=== PATIENT | male | born 1950 | race African-American/Black ===

== ENCOUNTER 2018-10-18 12:54 | Observation (INO) ==
[2018-10-18] MEDS ORDERED: LOPRESSOR INJ 5 MG AMP IVP PRN (14:43)
[2018-10-18 15:20] VITALS: BMI 27.1
[2018-10-18 15:37] LABS: BILIRUBIN,URINE NEGATIVE (NEGATIVE); BLOOD/HEMOGLOBIN,URINE NEGATIVE (NEGATIVE); GLUCOSE, URINE NEGATIVE (NEGATIVE); KETONES,URINE NEGATIVE (NEGATIVE); LEUKOCYTE ESTERASE ,URINE NEGATIVE (NEGATIVE); NITRITES,URINE NEGATIVE (NEGATIVE); PH,URINE 6.5 (5.0 - 8.0); PROTEIN,URINE NEGATIVE (NEGATIVE); UROBILINOGEN,URINE NORMAL (NORMAL)
[2018-10-18 15:46] LABS: APPEARANCE,URINE CLEAR (CLEAR); COLOR,URINE PALE YELLOW (YELLOW)
[2018-10-18 15:48] LABS: BASOPHILS # (AUTO) 0.1 X10^3/uL (0.0-0.1); BASOPHILS % (AUTO) 0.7 % (0.2-1.0); EOSINOPHILS # (AUTO) 0.3 x10^3/uL (0.0-0.2); EOSINOPHILS % (AUTO) 3.9 % (0.9-2.9); LYMPHOCYTES # (AUTO) 1.4 X10^3/uL (1.3-2.9); LYMPHOCYTES % (AUTO) 17.9 % (21.0-51.0); MEAN CORPUSCULAR HEMOGLOBIN 27.7 pg (27.0-34.0); MEAN CORPUSCULAR HGB CONC 32.4 g/dL (33.0-35.0); MEAN CORPUSCULAR VOLUME 85.4 fL (80.0-100.0); MEAN PLATELET VOLUME 7.7 fL (7.4-11.0); MONOCYTES # (AUTO) 0.7 x10^3/uL (0.3-0.8); MONOCYTES % (AUTO) 8.7 % (0.0-13.0); NEUTROPHILS # (AUTO) 5.5 x10^3/uL (2.2-4.8); NEUTROPHILS % (AUTO) 68.8 % (42.0-75.0); PLATELET COUNT 390 X10^3/uL (150.0-450.0); RED BLOOD COUNT 5.04 X10^6/uL (4.7-6.0); RED CELL DISTRIBUTION WIDTH 14.4 % (11.6-16.5)
[2018-10-18 16:09] LABS: ALANINE AMINOTRANSFERASE 40 Units/L (12-78); ALBUMIN 3.9 g/dL (3.4-5.0); ALKALINE PHOSPHATASE 146 Units/L (46-116); ASPARTATE AMINO TRANSFERASE 20 Units/L (15-37); BLOOD UREA NITROGEN 12 mg/dL (7-18); CALCIUM 9.4 mg/dL (8.5-10.1); CARBON DIOXIDE 30.3 mmol/L (21-32); CHLORIDE 103 mmol/L (98-107); CREATININE 1.17 mg/dL (0.70-1.30); MAGNESIUM 2.2 mg/dL (1.7-2.9); SODIUM 141 mmol/L (136-145); TOTAL PROTEIN 8.7 g/dL (6.4-8.2); eGFR NON BLACK RACES > 60 (>60)
[2018-10-18 16:19] LABS: CKMB % 1.1 % (<4); CREATINE KINASE 256 Units/L (39-308); CREATINE KINASE MB 2.8 ng/mL (0-4.0); TROPONIN I < 0.02 ng/mL (0-1.5)
--- NOTE | 2018-10-18 16:43 | RAD ---
History: Chest pain Study: Portable AP chest Comparison: None Findings: The lungs are grossly clear. The heart size is normal with a tortuous descending thoracic aorta. There is no edema or effusion or atelectasis or consolidation. Impression: No evidence for acute cardiopulmonary disease Reported By:
[2018-10-18] MEDS ORDERED: ULTRAM PO PRN (18:50)
[2018-10-18 21:41] LABS: CKMB % 1.1 % (<4); CREATINE KINASE 210 Units/L (39-308); CREATINE KINASE MB 2.3 ng/mL (0-4.0); TROPONIN I < 0.02 ng/mL (0-1.5)
[2018-10-18] MEDS: ZOFRAN INJ 4 MG VIAL IVP PRN (23:29)
[2018-10-19 03:15] LABS: BASOPHILS # (AUTO) 0.1 X10^3/uL (0.0-0.1); BASOPHILS % (AUTO) 1.4 % (0.2-1.0); EOSINOPHILS # (AUTO) 0.3 x10^3/uL (0.0-0.2); EOSINOPHILS % (AUTO) 3.9 % (0.9-2.9); HEMATOCRIT 41.6 % (42.0-54.0); HEMOGLOBIN 13.4 g/dL (13.5-18.0); LYMPHOCYTES # (AUTO) 1.2 X10^3/uL (1.3-2.9); LYMPHOCYTES % (AUTO) 17.8 % (21.0-51.0); MEAN CORPUSCULAR HEMOGLOBIN 27.6 pg (27.0-34.0); MEAN CORPUSCULAR HGB CONC 32.3 g/dL (33.0-35.0); MEAN CORPUSCULAR VOLUME 85.4 fL (80.0-100.0); MEAN PLATELET VOLUME 7.6 fL (7.4-11.0); MONOCYTES # (AUTO) 0.6 x10^3/uL (0.3-0.8); NEUTROPHILS # (AUTO) 4.6 x10^3/uL (2.2-4.8); NEUTROPHILS % (AUTO) 67.9 % (42.0-75.0); PLATELET COUNT 340 X10^3/uL (150.0-450.0); RED BLOOD COUNT 4.87 X10^6/uL (4.7-6.0); RED CELL DISTRIBUTION WIDTH 13.9 % (11.6-16.5); WHITE BLOOD COUNT 6.7 X10^3/uL (3.6-10.0)
[2018-10-19 03:24] LABS: ALANINE AMINOTRANSFERASE 36 Units/L (12-78); ALBUMIN 3.4 g/dL (3.4-5.0); ALKALINE PHOSPHATASE 131 Units/L (46-116); ASPARTATE AMINO TRANSFERASE 18 Units/L (15-37); BLOOD UREA NITROGEN 12 mg/dL (7-18); CALCIUM 8.6 mg/dL (8.5-10.1); CARBON DIOXIDE 28.2 mmol/L (21-32); CHLORIDE 105 mmol/L (98-107); CHOL/HDL RATIO 2.5 (0.0-5.0); CHOLESTEROL 81 mg/dL (0-200); COR NA(FOR HYPERGLY) 142 mmol/L (136-145); CREATININE 1.19 mg/dL (0.70-1.30); HDL CHOLESTEROL 32 mg/dL (40-60); SODIUM 142 mmol/L (136-145); TOTAL PROTEIN 7.6 g/dL (6.4-8.2); TRIGLYCERIDES 54 mg/dL (0-150); eGFR NON BLACK RACES > 60 (>60)
[2018-10-19 03:32] LABS: CKMB % 0.9 % (<4); CREATINE KINASE 195 Units/L (39-308); CREATINE KINASE MB 1.8 ng/mL (0-4.0); TROPONIN I < 0.02 ng/mL (0-1.5)
[2018-10-19] MEDS ORDERED: SALINE 3% 15 ML NEB TX NEB ONE (10:00)
[2018-10-19 10:09] LABS: CKMB % 0.8 % (<4); CREATINE KINASE 203 Units/L (39-308); CREATINE KINASE MB 1.6 ng/mL (0-4.0); TROPONIN I < 0.02 ng/mL (0-1.5)
[2018-10-19] MEDS: LEVSIN/MAALOX/LIDOC VISC PO SCH ×6 (10:46→21:49)
[2018-10-19] MEDS: PROTONIX INJ 40 MG VIAL IVP SCH (10:47)
[2018-10-19] MEDS: LIPITOR TAB 40 MG PO SCH ×2 (10:47→20:16)
[2018-10-19] MEDS: FOLIC ACID TAB 1 MG PO SCH (10:47)
[2018-10-19] MEDS: ASPIRIN 81 MG CHEWTAB PO SCH (10:47)
[2018-10-19] MEDS: ZANTAC PO SCH ×2 (10:49→20:16)
[2018-10-19] MEDS: DUONEB 0.5 MG/3 MG NEB SCH ×3 (12:36→21:42)
--- NOTE | 2018-10-19 17:59 | DR.H&P ---
H&P - History & Physical for Day of: H&P Date: 10/18/18 - Chief Complaint Chief Complaint: CP, SOB - History of Present Illness History of Present Illness: 68 BM ADMITTED FROM [facility] WITH REPORTS OF IRREGULAR HEART RHYTHM, NEW ONSET AFIB. PT CO CHEST PAIN AND INCREASED BELCHING, CHEST PRESSURE. PT STATES HE HAS HAD INCREASED SOB. PT HAS PMH OF HTN, CHF, OA, DANIEL, CVD, DM. PT ADMITTED FOR TREATMENT AND EVALUATION OF ACUTE ILLNESS. - Past Medical History Past Medical History: Arthritis, CVA, Diabetes, Dyslipidemia, GERD, Hypertension - Past Surgical History Surgical History: Ortho Surgery - Family History Family Medical History: CT, Hypertension - Social History Does patient currently use any type of tobacco product: No Have you used tobacco products in the last 12 months: No Type of Tobacco Use: None Does any household member use tobacco: No Alcohol Use: None Drug Use: None - Medications Home Medications: No Known Drug Allergies Allergy (Verified 10/18/18 14:50) CONTINUE taking the following medications aspirin 81 mg PO QDAY 10/18/18 [History] atorvastatin 40 mg PO QHS 10/18/18 [History] cyanocobalamin (vitamin B-12) [Vitamin B-12] 1,000 mcg PO QDAY 10/18/18 [History] folic acid 1 mg PO QDAY 10/18/18 [History] meclizine 12.5 mg PO TID PRN 10/18/18 [History] meloxicam [Mobic] 7.5 mg PO QHS 10/18/18 [History] ranitidine HCl [Zantac] 150 mg PO QHS 10/18/18 [History] - Review of Systems Constitutional: No Symptoms Reported Eyes: No Symptoms Reported ENT: No Symptoms Reported Respiratory: Shortness of Breath Cardiovascular: Chest Pain Gastrointestinal: Nausea Genitourinary: No Symptoms Reported Musculoskeletal: No Symptoms Reported Skin: No Symptoms Reported Neurological: No Symptoms Reported - Physical Exam Vital Signs: Temperature 97.8 F Pulse Rate 97 Respiratory Rate 18 Blood Pressure 110/62 O2 Sat by Pulse Oximetry 95 Oriented: Normal Eyes: Normal Ear: Normal Nose: Normal Throat: Normal Respiratory: RLL Diminished, LLL Diminished Cardiovascular: Normal. negative: Edema : Normal Auscultation: Bowel Sounds: Normal Palpation: Normal Tenderness: Epigastric, Mild Skin: Normal Musculoskeletal: Right, Left, Leg, Motor Deficit Mood Description: Calm Speech Pattern: Clear, Appropriate - Assessment/Plan (1) Chest pain Status: Acute Plan: ADMIT, SERIAL CE AND EKG. CXR ON ADMISSION. BP AND BS CONTROL. VERIFY HOME MEDICATIONS, SUPPLEMENTAL O2 (2) SOB (shortness of breath) Status: Acute (3) Hypertension Status: Acute (4) CVD (cerebrovascular disease) Status: Acute - Allergies Allergies/Adverse Reactions: Allergies Allergy/AdvReac Type Severity Reaction Status Date / Time No Known Drug Allergies Allergy Verified 10/18/18 14:50
--- NOTE | 2018-10-19 18:04 | PCM.PROG ---
Progress Note - Progress Note for Day of Date of Exam: 10/19/18 - Subjective Subjective: 68 BM ADMITTED ON 10/18 WITH CO CP, SOB, REPORTS OF NEW ONSET A FIB PRIOR TO ADMISSION, PT HAS HAD SERIAL EKG'S WITHOUT AFIB SINCE ADMISSION. PT CE WERE WNL. PT HAS CO EPIGASTRIC BURNING AND INCREASED COUGH WITH MUCOUS OVER PAST FEW DAYS. PT STARTED ON PPI THERAPY, GI COCKTAIL AND REPEAT CE. PT FLP STABLE, WILL CONTINUE TO MONITOR. PT IN NO DISTRESS THIS AM. - Past Medical Family Social History Past Med/Fam/Surg Hx: No changes since H&P Allergies: Allergies No Known Drug Allergies Allergy (Verified 10/18/18 14:50) - Review of Systems ROS: No change since H&P - Vital Signs and I&O's Vital Signs: Temperature 97.8 F Pulse Rate 97 Respiratory Rate 18 Blood Pressure 110/62 O2 Sat by Pulse Oximetry 95 Intake and Output: Intake & Output 10/17/18 10/18/18 10/19/18 10/20/18 11:59 11:59 11:59 11:59 Intake Total 370 / 370 1054 / 1054 Output Total 500 / 500 900 / 900 Balance -130 / -130 154 / 154 - Physical Exam Oriented: Normal Eyes: Normal Ear: Normal Nose: Normal Throat: Normal Respiratory: Diminished Cardiovascular: Normal. negative: Edema : Normal Auscultation: Bowel Sounds: Normal Tenderness: Epigastric, Mild Skin: Normal Musculoskeletal: Right, Left, Leg, Motor Deficit Mood Description: Calm Speech Pattern: Clear, Appropriate - Laboratory and Diagnostics Result Diagrams: 10/19/18 03:00 10/19/18 03:00 Labs: 10/19/18 10:35 Sputum - Expectorated Sputum - Final Laboratory WBC 6.7 X10^3/uL (3.6-10.0) 10/19/18 03:00 RBC 4.87 X10^6/uL (4.7-6.0) 10/19/18 03:00 Hgb 13.4 g/dL (13.5-18.0) L 10/19/18 03:00 Hct 41.6 % (42.0-54.0) L 10/19/18 03:00 MCV 85.4 fL (80.0-100.0) 10/19/18 03:00 MCH 27.6 pg (27.0-34.0) 10/19/18 03:00 MCHC 32.3 g/dL (33.0-35.0) L 10/19/18 03:00 RDW 13.9 % (11.6-16.5) 10/19/18 03:00 Plt Count 340 X10^3/uL (150.0-450.0) 10/19/18 03:00 MPV 7.6 fL (7.4-11.0) 10/19/18 03:00 Neut % (Auto) 67.9 % (42.0-75.0) 10/19/18 03:00 Lymph % (Auto) 17.8 % (21.0-51.0) L 10/19/18 03:00 [place] % (Auto) 9.0 % (0.0-13.0) 10/19/18 03:00 Eos % (Auto) 3.9 % (0.9-2.9) H 10/19/18 03:00 Baso % (Auto) 1.4 % (0.2-1.0) H 10/19/18 03:00 Neut # (Auto) 4.6 x10^3/uL (2.2-4.8) 10/19/18 03:00 Lymph # (Auto) 1.2 X10^3/uL (1.3-2.9) L 10/19/18 03:00 [place] # (Auto) 0.6 x10^3/uL (0.3-0.8) 10/19/18 03:00 Eos # (Auto) 0.3 x10^3/uL (0.0-0.2) H 10/19/18 03:00 Baso # (Auto) 0.1 X10^3/uL (0.0-0.1) 10/19/18 03:00 Absolute Nucleated RBC 0.0 /100WBC 10/19/18 03:00 INR Target Range - 10/18/18 15:27 INR 1.00 (0.8-1.3) 10/18/18 15:27 APTT 31.5 SECONDS (22.9-36.5) 10/18/18 15:27 PTT Comment - 10/18/18 15:27 Sodium 142 mmol/L (136-145) 10/19/18 03:00 Corrected Sodium 142 mmol/L (136-145) 10/19/18 03:00 Potassium 4.4 mmol/L (3.5-5.1) 10/19/18 03:00 Chloride 105 mmol/L (98-107) 10/19/18 03:00 Carbon Dioxide 28.2 mmol/L (21-32) 10/19/18 03:00 BUN 12 mg/dL (7-18) 10/19/18 03:00 Creatinine 1.19 mg/dL (0.70-1.30) 10/19/18 03:00 Est GFR (MDRD) Af Amer > 60 (>60) 10/19/18 03:00 Est GFR (MDRD) Non-Af > 60 (>60) 10/19/18 03:00 Glucose 116 mg/dL (65-99) H 10/19/18 03:00 Calcium 8.6 mg/dL (8.5-10.1) 10/19/18 03:00 Corrected Calcium TNP 10/19/18 03:00 Magnesium 2.2 mg/dL (1.7-2.9) 10/18/18 15:27 Total Bilirubin 0.30 mg/dL (0.2-1.0) 10/19/18 03:00 AST 18 Units/L (15-37) 10/19/18 03:00 ALT 36 Units/L (12-78) 10/19/18 03:00 Alkaline Phosphatase 131 Units/L (46-116) H 10/19/18 03:00 Creatine Kinase 203 Units/L (39-308) 10/19/18 09:36 CK-MB (CK-2) 1.6 ng/mL (0-4.0) 10/19/18 09:36 CK/CKMB % Calc 0.8 % (<4) 10/19/18 09:36 Troponin I < 0.02 ng/mL (0-1.5) 10/19/18 09:36 Total Protein 7.6 g/dL (6.4-8.2) 10/19/18 03:00 Albumin 3.4 g/dL (3.4-5.0) 10/19/18 03:00 Globulin 4.2 g/dL (2.5-4.5) 10/19/18 03:00 Albumin/Globulin Ratio 0.8 Ratio (1.1-2.1) L 10/19/18 03:00 Triglycerides 54 mg/dL (0-150) 10/19/18 03:00 Cholesterol 81 mg/dL (0-200) 10/19/18 03:00 LDL Cholesterol, Calc 38 mg/dL (0-100) 10/19/18 03:00 HDL Cholesterol 32 mg/dL (40-60) L 10/19/18 03:00 Cholesterol/HDL Ratio 2.5 (0.0-5.0) 10/19/18 03:00 Specimen Type Random urine 10/18/18 14:56 Urine Color Pale yellow (YELLOW) 10/18/18 14:56 Urine Appearance Clear (CLEAR) 10/18/18 14:56 Urine pH 6.5 (5.0 - 8.0) 10/18/18 14:56 Ur Specific [place] 1.010 (1.000-1.030) 10/18/18 14:56 Urine Protein Negative (NEGATIVE) 10/18/18 14:56 Urine Glucose (UA) Negative (NEGATIVE) 10/18/18 14:56 Urine Ketones Negative (NEGATIVE) 10/18/18 14:56 Urine Occult Blood Negative (NEGATIVE) 10/18/18 14:56 Urine Nitrite Negative (NEGATIVE) 10/18/18 14:56 Urine Bilirubin Negative (NEGATIVE) 10/18/18 14:56 Urine Urobilinogen Normal (NORMAL) 10/18/18 14:56 Ur Leukocyte Esterase Negative (NEGATIVE) 10/18/18 14:56 - Plan (1) Chest pain Status: Acute Plan: SERIAL CE AND EKG. CXR ON ADMISSION. BP AND BS CONTROL. VERIFY HOME MEDICATIONS, SUPPLEMENTAL O2. PPI THERAPY, GI COCKTAIL, RESP CONSULT FOR DUO NEBS (2) SOB (shortness of breath) Status: Acute (3) Hypertension Status: Acute (4) CVD (cerebrovascular disease) Status: Acute
[2018-10-19] MEDS: NYSTATIN POWDER TOP SCH (20:16)
[2018-10-20] MEDS: DUONEB 0.5 MG/3 MG NEB SCH ×3 (01:01→09:42)
[2018-10-20 06:26] LABS: BASOPHILS % (AUTO) 0.4 % (0.2-1.0); EOSINOPHILS # (AUTO) 0.2 x10^3/uL (0.0-0.2); EOSINOPHILS % (AUTO) 3.1 % (0.9-2.9); HEMATOCRIT 38.8 % (42.0-54.0); HEMOGLOBIN 12.6 g/dL (13.5-18.0); LYMPHOCYTES # (AUTO) 1.4 X10^3/uL (1.3-2.9); LYMPHOCYTES % (AUTO) 17.6 % (21.0-51.0); MEAN CORPUSCULAR HEMOGLOBIN 27.7 pg (27.0-34.0); MEAN CORPUSCULAR HGB CONC 32.4 g/dL (33.0-35.0); MEAN CORPUSCULAR VOLUME 85.5 fL (80.0-100.0); MONOCYTES # (AUTO) 0.8 x10^3/uL (0.3-0.8); MONOCYTES % (AUTO) 10.4 % (0.0-13.0); NEUTROPHILS # (AUTO) 5.3 x10^3/uL (2.2-4.8); NEUTROPHILS % (AUTO) 68.5 % (42.0-75.0); PLATELET COUNT 334 X10^3/uL (150.0-450.0); RED BLOOD COUNT 4.54 X10^6/uL (4.7-6.0); RED CELL DISTRIBUTION WIDTH 14.5 % (11.6-16.5); WHITE BLOOD COUNT 7.7 X10^3/uL (3.6-10.0)
[2018-10-20 06:43] LABS: ALANINE AMINOTRANSFERASE 30 Units/L (12-78); ALBUMIN 3.3 g/dL (3.4-5.0); ALKALINE PHOSPHATASE 120 Units/L (46-116); ASPARTATE AMINO TRANSFERASE 15 Units/L (15-37); BLOOD UREA NITROGEN 13 mg/dL (7-18); CALCIUM 8.6 mg/dL (8.5-10.1); CARBON DIOXIDE 28.6 mmol/L (21-32); CHLORIDE 104 mmol/L (98-107); COR CA(FOR HYPOALB) 9.2 mg/dL (8.5-10.1); CREATININE 1.22 mg/dL (0.70-1.30); SODIUM 140 mmol/L (136-145); TOTAL PROTEIN 7.4 g/dL (6.4-8.2); eGFR NON BLACK RACES > 60 (>60)
[2018-10-20] MEDS: PROTONIX INJ 40 MG VIAL IVP SCH (08:45)
[2018-10-20] MEDS: FOLIC ACID TAB 1 MG PO SCH (08:45)
[2018-10-20] MEDS: ASPIRIN 81 MG CHEWTAB PO SCH (08:45)
[2018-10-20] MEDS: NYSTATIN POWDER TOP SCH (09:12)
[2018-10-20] MEDS: ZOFRAN INJ 4 MG VIAL IVP PRN (09:12)
[2018-10-20] MEDS ORDERED: DULCOLAX SUPPOSITORY 10 MG RECTAL ONE (10:01)
[2018-10-20] MEDS ORDERED: DULCOLAX SUPPOSITORY 10 MG ONE (10:12)
--- NOTE | 2018-10-20 11:54 | RAD ---
History: Left ankle pain Study: Three views of the left ankle Findings: There are mild osteophytes about the ankle joint. There is no fracture or subluxation. There is a small plantar spur. Impression: Mild osteoarthritis about the ankle joint Reported By:
[2018-10-20] MEDS ORDERED: LEVSIN/MAALOX/LIDOC VISC PO ONE (14:51)
[2018-10-20] MEDS ORDERED: LEVSIN/MAALOX/LIDOC VISC ONE (14:53)
[2018-10-20 15:55] LABS: CKMB % 1.3 % (<4); CREATINE KINASE 176 Units/L (39-308); CREATINE KINASE MB 2.2 ng/mL (0-4.0); TROPONIN I < 0.02 ng/mL (0-1.5)
[2018-10-20 16:31] VITALS: BP 118/78
== END 2018-10-20 16:35 | disposition home or self-care (01) ==
LOC: ICU
PROVIDERS: ADMIT Internal Medicine; ATTEND Internal Medicine
DX: M13.89 Other specified arthritis, multiple sites; R00.0 Tachycardia, unspecified; R26.89 Other abnormalities of gait and mobility; R06.02 Shortness of breath; R07.89 Other chest pain; I48.91 Unspecified atrial fibrillation; R94.31 Abnormal electrocardiogram [ECG] [EKG]; F41.8 Other specified anxiety disorders; I67.9 Cerebrovascular disease, unspecified; I10 Essential (primary) hypertension
CPT/HCPCS: 36415; 71010; 71045; 73610; 80053; 80061; 81003; 82550; 82553; 83735; 84484; 85025; 85610; 85730; 87070; 87205; 93005; 94640; 94669; 96374; 97162; 97166; A4216; A4222; C9113; G0378; J2405; J7620